=== PATIENT | male | born 1955 | race Caucasian/White ===

== ENCOUNTER → 2016-10-18 | Outpatient (CLI) | payer BC ==
--- NOTE | ~2016-10-18 | EKG ---
PATIENT: BERTA ESPOSITO UNIT #: [id number] Ventricular Rate: 58 BPM Atrial Rate: 58 BPM P-R Interval: 162 ms QRS Duration: 94 ms Q-T Interval: 428 ms QTC Calculation(Bezet): 420 ms P [place]: 41 degrees Calculated R [place]: 37 degrees Calculated T [place]: 15 degrees Diagnosis Line: Sinus bradycardia with Premature atrial complexes Diagnosis Line: Otherwise normal ECG Diagnosis Line: No previous ECGs available Diagnosis Line: Confirmed by PUMA METZ MD ([id number]) on 10/18/2016 Diagnosis Line: 8:39:19 PM INTERPRETING MD: LASHAY DIETZ
[2016-10-18 09:28] LABS: HEMATOCRIT 44.9 % (38.0-50.0); HEMOGLOBIN 14.7 gm/dL (13.0-16.0); MEAN CELL VOLUME 89.2 FL (83-96); MEAN CORPUSCULAR HEMOGLOBIN 29.2 PG (28-34); MEAN CORPUSCULAR HGB CONC 32.7 g/dL (30-36); MEAN PLATELET VOLUME 7.6 FL (6.5-11.5); RED BLOOD COUNT 5.03 X10e (3.90-5.60); RED CELL DISTRIBUTION WIDTH 13.1 % (11.0-15.5); WHITE BLOOD COUNT 4.2 X10e3 (4.0-10.5)
[2016-10-18 09:55] LABS: BUN/CREATININE RATIO 16.66; CALCIUM SERUM 8.3 mg/dL (8.4-10.2); CREATININE SERUM 0.9 mg/dL (0.6-1.4); GLOM FILT RATE Estimated 90.6 mL/min (>60); POTASSIUM 4.3 mmol/L (3.5-5.1)
== END | disposition home or self-care (01) ==
LOC: CLAB 09:06
PROVIDERS: Orthopaedic Surgery
DX: Z01.818 Encounter for other preprocedural examination (principal); M75.100 Unspecified rotator cuff tear or rupture of unspecified shoulder, not specified as traumatic; I49.1 Atrial premature depolarization; R00.1 Bradycardia, unspecified
CPT/HCPCS: 36415; 80048; 85027; 93005